=== PATIENT | female | born 2000 | race Caucasian/White ===

== ENCOUNTER → 2024-06-21 10:38 | Outpatient (REF) | payer OTHER, SELFPAY ==
[2024-06-21 11:46] LABS: Hematocrit 39.4 % (37.0-47.0); Mean Corpuscular Hgb 27.8 pg (27.0-31.0); Mean Corpuscular Volume 84.2 fL (81.0-99.0); Mean Platelet Volume 9.7 fL (7.4-10.4); Platelet Count 206 10^3/uL (130-400); Red Blood Cell Count 4.68 10^6/uL (4.20-5.40); Red Cell Dist. Width 13.1 % (11.5-14.5); White Blood Cell Count 2.1 10^3/uL (4.8-10.8)
[2024-06-21 13:10] LABS: Absolute Neutrophils -Man Diff 0.5 10^3/uL (1.4-6.5); Band Neutrophils 5 % (0-3); Lymphocytes 41 % (20-51); Segmented Neutrophils 21 % (42-75)
[2024-06-21 13:11] LABS: Eosinophils 3 % (0-6); Monocytes 27 % (2-9); Normal RBC Morphology Yes; Platelets Checked Yes; Total Cells Counted 100
== END ==
LOC: REG 10:38
PROVIDERS: ATTENDING PHYSICIAN Internal Medicine Hematology & Oncology; FAMILY PHYSICIAN Physician Assistant Medical
DX: D70.9 Neutropenia, unspecified (principal)
CPT/HCPCS: 36415; 85025